=== PATIENT | male | born 1985 | race African-American/Black ===

== ENCOUNTER 2018-07-16 11:04 | Emergency (ER) | payer MEDICAID ==
[~2018-07-16] VITALS: Ht 175.3 cm; Wt 70.4 kg
[2018-07-16] MEDS ORDERED: IBUPROFEN 600MG TABLET PO ONE (12:00)
[2018-07-16 12:20] VITALS: BP 129/96
== END 2018-07-16 12:24 | disposition home or self-care (01) ==
LOC: ER 11:04
DX: M21.42 Flat foot [pes planus] (acquired), left foot (principal); M21.41 Flat foot [pes planus] (acquired), right foot
CPT/HCPCS: 99282

== ENCOUNTER 2021-07-15 15:38 | Emergency (ER) | payer SELFPAY ==
[~2021-07-15] VITALS: Ht 175.3 cm; Wt 77.0 kg
[2021-07-15 15:46] VITALS: BP 135/85
[2021-07-15] MEDS ORDERED: TETANUS, DIPHTHERIA, PERTUSSIS VAC/PF 0.5ML (>10YR OLD) IM ONE (16:00)
[2021-07-15] MEDS ORDERED: LIDOCAINE HCL/EPINEPHRINE 1%-EPI 1:100,000 20 ML VIAL INFIL ONE (16:00)
== END 2021-07-15 17:20 | disposition home or self-care (01) ==
LOC: ER 15:38
DX: S01.01XA Laceration without foreign body of scalp, initial encounter (principal); W22.8XXA Striking against or struck by other objects, initial encounter; Y93.89 Activity, other specified; Y92.89 Other specified places as the place of occurrence of the external cause; Y99.8 Other external cause status
CPT/HCPCS: 12002; 90471; 90715; 99283; J3490; Z7610

== ENCOUNTER 2021-07-22 09:10 | Emergency (ER) | payer SELFPAY ==
[~2021-07-22] VITALS: Ht 175.3 cm; Wt 61.0 kg
[2021-07-22 09:36] VITALS: BP 130/90
== END 2021-07-22 10:32 | disposition home or self-care (01) ==
LOC: ER 09:10
DX: Z48.02 Encounter for removal of sutures (principal)
CPT/HCPCS: 99281; Z7610

== ENCOUNTER 2021-09-15 10:54 | Emergency (ER) | payer MEDICAID ==
[~2021-09-15] VITALS: Ht 175.3 cm; Wt 80.0 kg
[2021-09-15 11:05] VITALS: BP 138/85
== END 2021-09-15 12:41 | disposition home or self-care (01) ==
LOC: ER 11:00
DX: S01.01XA Laceration without foreign body of scalp, initial encounter (principal); Y08.89XA Assault by other specified means, initial encounter; Y93.89 Activity, other specified; Y92.89 Other specified places as the place of occurrence of the external cause
CPT/HCPCS: 12002; 99282